=== PATIENT | female | born 1950 | race Caucasian/White ===

== ENCOUNTER 2024-11-21 18:21 | Inpatient (IN) | payer OTHER ==
[~2024-11-21] VITALS: Ht 162.6 cm; Wt 120.7 kg
[2024-11-21] MEDS: SODIUM CHLORIDE 0.9% 1,000 ML IV ONE (18:52)
[2024-11-21 20:37] LABS: HEMATOCRIT. 30.8 % (36.0-48.0); HEMOGLOBIN. 10.2 g/dL (12.0-16.0); MEAN CORPUSCULAR HEMOGLOBIN 25.5 pg (28.0-32.0); MEAN CORPUSCULAR VOLUME 77.2 fL (81.0-99.0); MEAN PLATELET VOLUME 10.6 fl (7.4-10.4); PLATELET 55 x1000/uL (130-400); RED BLOOD CELL COUNT 3.99 mill/uL (4.2-5.4); RED CELL DISTRIBUTION WIDTH 14.6 % (11.6-14.6); WHITE BLOOD COUNT 25.3 x1000/uL (4.5-11.0)
[2024-11-21 20:40] LABS: DIFFERENTIAL COMMENT 1
[2024-11-21 20:46] LABS: CHLORIDE 98 mEq/L (98-107); POTASSIUM 3.7 mEq/L (3.5-5.1); SODIUM 131 mEq/L (136-145)
[2024-11-21 20:47] LABS: CALCIUM 8.1 mg/dL (8.7-10.4); CARBON DIOXIDE 21 mEq/L (21-32)
[2024-11-21 20:52] LABS: CREATININE 4.1 mg/dL (0.6-1.0); GLUCOSE 169 mg/dL (70-105); UREA NITROGEN BLOOD 41 mg/dL (9-23)
[2024-11-21 20:54] LABS: MICROCYTOSIS 1+; PLATELET ESTIMATE DECREASED
[2024-11-21] MEDS: SODIUM CHLORIDE 0.9% (SEPSIS BOLUS) IV ONE (20:54)
[2024-11-21] MEDS: PIPERACILLIN/TAZO 3.375G/50ML 50 ML IV ONE (20:54)
[2024-11-21] MEDS: VANCOMYCIN 1G PREMIX 200 ML IV ONE (20:54)
[2024-11-21] MEDS: ACETAMINOPHEN 325MG TABLET PO STA (20:54)
[2024-11-21 20:59] LABS: TROPONIN I HIGH SENSITIVITY 75 ng/L (3.0-34)
[2024-11-21 21:00] LABS: TROPONIN I HIGH SENSITIVITY 81 ng/L (3.0-34)
[2024-11-21 21:09] LABS: INR 1.1; PROTHROMBIN TIME 11.7 sec (9.6-11.0)
[2024-11-21 21:31] LABS: LACTIC ACID 2.8 mmol/L (0.4-2.0)
[2024-11-21 21:32] LABS: ALANINE AMINOTRANSFERASE 276 IU/L (10-49); ALBUMIN 3.3 g/dL (3.2-4.8); ASPARTATE AMINOTRANSFERASE 337 IU/L (<34); BILIRUBIN DIRECT 3.8 mg/dL (<=3.0); BILIRUBIN TOTAL 5.1 mg/dL (0.1-1.0)
[2024-11-21 21:49] LABS: TROPONIN I HIGH SENSITIVITY 80 ng/L (3.0-34)
[2024-11-21] MEDS: NOREPINEPHRINE 8MG/250ML PMX 250 ML IV ONE (23:40)
[2024-11-22] MEDS ORDERED: MAGNESIUM/ALUMINUM HYDROXIDE/SIMETHICONE 30ML UDC PO PRN (01:00)
[2024-11-22] MEDS ORDERED: IPRATROPIUM/ALBUTEROL 0.5-3(2.5)MG/3ML NEB NEB PRN (01:00)
[2024-11-22] MEDS ORDERED: ACETAMINOPHEN 325MG TABLET PO PRN (01:00)
[2024-11-22] MEDS ORDERED: HYDROCODONE/ACETAMINOPHEN 5/325MG TABLET PO PRN (01:00)
[2024-11-22] MEDS: SODIUM CHLORIDE 0.9% 1,000 ML IV SCH (02:00)
[2024-11-22] MEDS: ONDANSETRON HCL 4MG/2ML INJ IV PRN (02:37)
[2024-11-22 02:55] LABS: TROPONIN I HIGH SENSITIVITY 79 ng/L (3.0-34)
[2024-11-22] MEDS: MIDODRINE HCL 5MG TABLET PO SCH (07:21)
[2024-11-22 08:15] LABS: CLARITY URINE TURBID (CLEAR); COLOR URINE DARK YELLOW (YELLOW); GLUCOSE URINE NEGATIVE (NEGATIVE); KETONES URINE NEGATIVE (NEGATIVE); LEUKOCYTE ESTERASE URINE 1+ (NEGATIVE); NITRITE URINE POSITIVE (NEGATIVE); OCCULT BLOOD URINE 2+ (NEGATIVE); PROTEIN URINE 2+ (NEGATIVE); SPECIFIC GRAVITY URINE 1.016 (1.005-1.030)
[2024-11-22 08:26] LABS: BACTERIA URINE 4+; RBC URINE 0-2 /hpf (0-2); SQUAMOUS EPITHELIAL CELL URINE 1+ /lpf (RARE/1+); YEAST URINE NONE SEEN
[2024-11-22 08:35] LABS: *AMPHETAMINES SCREEN URINE NEGATIVE (NEGATIVE); *BARBITURATES SCREEN URINE NEGATIVE (NEGATIVE); *BENZODIAZEPINES SCREEN URINE NEGATIVE (NEGATIVE); *COCAINE SCREEN URINE NEGATIVE (NEGATIVE); CANNABINOID URINE SCREEN NEGATIVE (NEGATIVE); ECSTASY MDMA SCREEN URINE NEGATIVE (NEGATIVE); METHADONE URINE SCREEN NEGATIVE (NEGATIVE); OPIATES URINE SCREEN NEGATIVE (NEGATIVE); PHENCYCLIDINE URINE SCREEN NEGATIVE (NEGATIVE)
[2024-11-22] MEDS ORDERED: ENOXAPARIN 30MG/0.3ML SYR SUBCUT SCH (09:00)
[2024-11-22 09:21] LABS: POTASSIUM 3.7 mEq/L (3.5-5.1)
[2024-11-22 09:22] LABS: CALCIUM 7.6 mg/dL (8.7-10.4)
[2024-11-22 09:24] LABS: HEMOGLOBIN. 9.9 g/dL (12.0-16.0); MEAN CORPUSCULAR HEMOGLOBIN 25.5 pg (28.0-32.0); MEAN CORPUSCULAR HGB CONC 32.8 g/dL (31.0-37.0); MEAN CORPUSCULAR VOLUME 77.7 fL (81.0-99.0); MEAN PLATELET VOLUME 10.4 fl (7.4-10.4); RED BLOOD CELL COUNT 3.86 mill/uL (4.2-5.4); WHITE BLOOD COUNT 20.9 x1000/uL (4.5-11.0)
[2024-11-22 09:27] LABS: CREATININE 4.8 mg/dL (0.6-1.0)
[2024-11-22 09:28] LABS: CREATINE KINASE MB FRACTION 9.1 ng/mL (0.5-3.6)
[2024-11-22] MEDS: PIPERACILLIN/TAZO 3.375G/50ML 50 ML IV SCH (09:43)
[2024-11-22] MEDS: PANTOPRAZOLE SODIUM 40 MG/VIAL IV SCH (09:43)
[2024-11-22 09:46] LABS: DIFFERENTIAL COMMENT 1
[2024-11-22 12:30] VITALS: BP 126/66; PULSE 74; RESP 18; TEMP 36.7; O2SAT 97
[2024-11-22] MEDS: VANCOMYCIN 1GM/200ML PMX (BAXTER) IV SCH (14:26)
[2024-11-22] MEDS ORDERED: CEFEPIME 1GM IN DEXT 5% 50ML IV SCH (14:30)
[2024-11-22 16:27] VITALS: BP 124/64; PULSE 64; RESP 18; TEMP 36.8; O2SAT 97
[2024-11-22 17:22] LABS: CREATINE KINASE MB FRACTION 12.2 ng/mL (0.5-3.6)
[2024-11-22] MEDS: CEFEPIME 1GM PREMIX 50ML IV SCH (17:49)
[2024-11-22] MEDS: METRONIDAZOLE 500 MG PREMIX 100 ML IV SCH (19:49)
[2024-11-22 20:00] VITALS: BP 118/64; PULSE 92; RESP 18; TEMP 36.8; O2SAT 97
[2024-11-22 20:27] LABS: HEPATITIS B SURFACE ANTIGEN NEGATIVE (Negative)
[2024-11-22 20:48] LABS: HEPATITIS C AB NON REACTIVE (Neg) (Negative)
[2024-11-23] VITALS: BP 103/51; PULSE 75; RESP 18; TEMP 36.9; O2SAT 100
[2024-11-23 04:00] VITALS: BP 116/55; PULSE 71; RESP 18; TEMP 36.7; O2SAT 100
[2024-11-23 07:41] LABS: HEMATOCRIT. 31.5 % (36.0-48.0); HEMOGLOBIN. 10.3 g/dL (12.0-16.0); MEAN CORPUSCULAR HEMOGLOBIN 25.6 pg (28.0-32.0); MEAN CORPUSCULAR HGB CONC 32.7 g/dL (31.0-37.0); MEAN CORPUSCULAR VOLUME 78.3 fL (81.0-99.0); PLATELET 60 x1000/uL (130-400); RED BLOOD CELL COUNT 4.03 mill/uL (4.2-5.4); RED CELL DISTRIBUTION WIDTH 15.8 % (11.6-14.6); WHITE BLOOD COUNT 17.4 x1000/uL (4.5-11.0)
[2024-11-23 08:00] VITALS: BP 106/51; PULSE 68; RESP 18; TEMP 36.4; O2SAT 96
[2024-11-23 08:06] LABS: POTASSIUM 3.7 mEq/L (3.5-5.1)
[2024-11-23 08:07] LABS: CALCIUM 7.9 mg/dL (8.7-10.4)
[2024-11-23 08:37] LABS: CREATININE 5.4 mg/dL (0.6-1.0)
[2024-11-23 08:46] LABS: DIFFERENTIAL COMMENT 1
[2024-11-23] MEDS ORDERED: NALOXONE HCL 0.4MG/ML VIAL IV PRN (10:15)
[2024-11-23 11:55] LABS: ANISOCYTOSIS 1+; PLATELET ESTIMATE DECREASED
[2024-11-23 12:00] VITALS: BP 97/52; PULSE 62; RESP 19; TEMP 36.3; O2SAT 98
[2024-11-23] MEDS: SODIUM BICARBONATE 650MG TABLET PO SCH (12:29)
[2024-11-23 16:00] VITALS: BP 99/53; PULSE 63; RESP 18; TEMP 36.3; O2SAT 99
[2024-11-23 16:51] LABS: PLATELET ESTIMATE MARKEDLY DECREASED
[2024-11-23 16:52] LABS: ANISOCYTOSIS 1+; HYPOCHROMASIA 1+; MICROCYTOSIS 1+
[2024-11-23 16:54] LABS: PLATELET 46 x1000/uL (130-400)
[2024-11-23 19:35] VITALS: BP 130/64; PULSE 68; TEMP 97; O2SAT 99
[2024-11-23 20:25] LABS: ALANINE AMINOTRANSFERASE 248 IU/L (10-49); ALBUMIN 2.9 g/dL (3.2-4.8); ASPARTATE AMINOTRANSFERASE 249 IU/L (<34); BILIRUBIN DIRECT 1.7 mg/dL (<=3.0); BILIRUBIN TOTAL 2.2 mg/dL (0.1-1.0); PROTEIN TOTAL 5.6 g/dL (6.0-8.3)
== END 2024-11-23 20:47 | disposition short-term general hospital (02) | DRG 871 ==
LOC: ER 18:21 → EDBEDREQSVC 22:18 → EDBEDREQ 22:18 → EDBEDREQTM 22:18 → MICUSO 23:26 → EDBEDREQSVC 23:27 → EDBEDREQTM 23:27 → EDBEDREQSVC 11-22 09:54 → 7WST 11-22 12:21
PROVIDERS: ADMIT Internal Medicine; ATTEND Internal Medicine
DX: A41.9 Sepsis, unspecified organism (principal); I21.4 Non-ST elevation (NSTEMI) myocardial infarction; R65.21 Severe sepsis with septic shock; N17.0 Acute kidney failure with tubular necrosis; E87.1 Hypo-osmolality and hyponatremia; E87.20 Acidosis, unspecified; Z68.42 Body mass index [BMI] 45.0-49.9, adult; N12 Tubulo-interstitial nephritis, not specified as acute or chronic; K80.00 Calculus of gallbladder with acute cholecystitis without obstruction; Z20.822 Contact with and (suspected) exposure to COVID-19; D69.6 Thrombocytopenia, unspecified; D50.9 Iron deficiency anemia, unspecified; E11.22 Type 2 diabetes mellitus with diabetic chronic kidney disease; E78.00 Pure hypercholesterolemia, unspecified; I12.9 Hypertensive chronic kidney disease with stage 1 through stage 4 chronic kidney disease, or unspecified chronic kidney disease; K40.90 Unilateral inguinal hernia, without obstruction or gangrene, not specified as recurrent; K57.30 Diverticulosis of large intestine without perforation or abscess without bleeding; R26.2 Difficulty in walking, not elsewhere classified; R74.01 Elevation of levels of liver transaminase levels; E66.01 Morbid (severe) obesity due to excess calories; Z79.899 Other long term (current) drug therapy
CPT/HCPCS: 36415; 71045; 74176; 76705; 80048; 80076; 80305; 81003; 82550; 82553; 83605; 83880; 84145; 84484; 85025; 86705; 87077; 87186; 87340; 87420; 87426; 87804; 93005; 93970; 99291; J0692; J2405; J2470; J2543; J3370; J3490; J7030